=== PATIENT | male | born 1980 | race Caucasian/White ===

== ENCOUNTER 2018-08-15 17:14 | Emergency (ER) | payer SELFPAY ==
[2018-08-15 17:55] VITALS: BP 135/71
[2018-08-15] MEDS ORDERED: Ibuprofen TAB* 400 MG PO ONE (17:58)
[2018-08-15 18:09] LABS: Influenza A Molecular POSITIVE (Negative)
--- NOTE | 2018-08-15 18:54 | UC ---
FLU HPI - HPI Summary HPI Summary: 38-year-old male with a chief complaint of almost a week of upper respiratory tract infection symptoms that he got a lot sicker today. Had a runny nose no sore throat for several days and then today feels like his bodies in a vice. He has fevers today and also. Generalized myalgias. Minimal sore throat is a little bit of a cough but no shortness of breath. Tries [id number] medicines which helped some. - History of Current Complaint Chief Complaint: UCGeneralIllness Stated Complaint: ACHES, AND COUGH Time Seen by Provider: 08/15/18 18:39 Pain Intensity: 8 - Allergy/Home Medications Allergies/Adverse Reactions: Allergies Allergy/AdvReac Type Severity Reaction Status Date / Time No Known Allergies Allergy Verified 08/15/18 17:56 PMH/Surg Hx/FS Hx/Imm Hx Previously Healthy: Yes - Surgical History Surgical History: Yes Surgery Procedure, Year, and Place: back. legs. shoulder - Family History Known Family History: Positive: Non-Contributory - Social History Alcohol Use: None Substance Use Type: None Smoking Status (MU): Heavy Every Day Tobacco Smoker Review of Systems All Other Systems Reviewed And Are Negative: Yes Constitutional: Positive: Fever, Chills Skin: Positive: Negative Eyes: Positive: Negative ENT: Positive: Sore Throat, Nasal Discharge, Sinus Congestion Respiratory: Positive: Cough Cardiovascular: Positive: Negative Gastrointestinal: Positive: Negative Motor: Positive: Negative Neurovascular: Positive: Negative Musculoskeletal: Positive: Myalgia Neurological: Positive: Negative Psychological: Positive: Negative Is Patient Immunocompromised?: No Physical Exam Triage Information Reviewed: Yes Appearance: No Pain Distress, Well-Nourished, Ill-Appearing - MILD Vital Signs: Initial Vital Signs Temp 104 F 08/15/18 17:47 Pulse 108 08/15/18 17:47 Resp 17 08/15/18 17:47 BP 135/71 08/15/18 17:47 Pulse Ox 96 08/15/18 17:47 Vital Signs Reviewed: Yes Eye Exam: Normal Eyes: Positive: Conjunctiva Clear ENT: Positive: Pharyngeal erythema, Nasal congestion, Nasal drainage, TMs normal Neck exam: Normal Neck: Positive: Supple Respiratory: Positive: Lungs clear, Normal breath sounds, No respiratory distress Cardiovascular: Positive: Tachycardia Musculoskeletal Exam: Normal Musculoskeletal: Positive: Strength Intact, ROM Intact Neurological Exam: Normal Neurological: Positive: Alert, Muscle Tone Normal Psychological Exam: Normal Psychological: Positive: Normal Response To Family, Age Appropriate Behavior Skin Exam: Normal Flu Course/Dx - Differential Dx/Diagnosis Provider Diagnosis: Influenza Discharge - Sign-Out/Discharge Documenting (check all that apply): Patient Departure All imaging exams completed and their final reports reviewed: No Studies - Discharge Plan Condition: Stable Disposition: HOME Prescriptions: Oseltamivir CAP* [Tamiflu CAP*] 75 mg PO BID #10 cap Patient Education Materials: Influenza (ED) Forms: *Work Release Referrals: Matthew Peter MD [Primary Care Provider] - Additional Instructions: FOLLOW UP WITH YOUR DOCTOR IF NOT COMPLETELY IMPROVED. GET RECHECKED FOR ANY WORSENING OF YOUR CONDITION OR QUESTIONS OR CONCERNS. - Billing Disposition and Condition Condition: STABLE Disposition: Home
== END 2018-08-15 19:00 | disposition home or self-care (01) ==
LOC: UCEAST 17:14
DX: J11.1 Influenza due to unidentified influenza virus with other respiratory manifestations (principal); F17.290 Nicotine dependence, other tobacco product, uncomplicated
CPT/HCPCS: 99212; A9270-GY; G0463

== ENCOUNTER 2018-08-22 16:25 | Emergency (ER) | payer SELFPAY ==
[2018-08-22 16:55] VITALS: BP 143/93
--- NOTE | 2018-08-22 17:11 | UC ---
Respiratory Complaint HPI - HPI Summary HPI Summary: Patient presents to urgent care reporting he's got some chest congestion cough productive of yellow-green sputum. Patient denies shortness of breath. Patient states he does have wheezing. Patient smokes 2 packs of similar today. Patient was evaluated urgent care last week and diagnosed with influenza. Patient was to on Tamiflu. 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 Patient says he was doing good until yesterday when he started to feel cough and congestion. Patient without any ear pain sinus pain sore throat. Patient has not taken any [id number] medications. Patient medications reviewed this visit. - History of Current Complaint Chief Complaint: UCRespiratory Stated Complaint: CHEST CONGESTION Time Seen by Provider: 08/22/18 16:54 Hx Obtained From: Patient, Medical Records Onset/Duration: Gradual Onset Severity Initially: Mild Severity Currently: None Pain Intensity: 0 Pain Scale Used: 0-10 Numeric Character: Cough: Productive - yellow-green - Allergies/Home Medications Allergies/Adverse Reactions: Allergies Allergy/AdvReac Type Severity Reaction Status Date / Time No Known Allergies Allergy Verified 08/22/18 16:55 Home Medications: Home Medications D-Methorphan/PE/Acetaminophen [Vicks Dayquil Cold & Flu 10-5-325 mg/15Ml] 1 liq PO Q6H 08/22/18 [History Confirmed 08/22/18] PMH/Surg Hx/FS Hx/Imm Hx Previously Healthy: Yes Respiratory History: Pneumonia - Surgical History Surgical History: Yes Surgery Procedure, Year, and Place: back. 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 EOM intact and full ENT: Hearing grossly normal TM x 2 clear, mild bogginess b/l, mmoist, uvula midline, no exudate, no erythema Neck: Positive: Supple Respiratory: Positive: Patient with intermittent coarse cough. Patient with scattered expiratory wheezing. Patient speaking full easy sentences. Cardiovascular: RRR nl s1, s2 no m/r CBT <2 sec abd soft + BS nt/nd no guarding, no distension Musculoskeletal Exam: DODD x 4 without difficulty Strength Intact, ROM Intact Neurological: Positive: Alert, + sensation throughout Psychological: Positive: Normal Response To Family Skin: Positive: no rash, no ecchymosis Triage Information Reviewed: Yes Vital Signs: Initial Vital Signs Temp 98.7 F 08/22/18 16:50 Pulse 108 08/22/18 16:50 Resp 16 08/22/18 16:50 BP 143/93 08/22/18 16:50 Pulse Ox 99 08/22/18 16:50 UC Diagnostic Evaluation - Laboratory O2 Sat by Pulse Oximetry: 99 Respiratory Course/Dx - Course Course Of Treatment: Patient presents with cough productive of yellow-green sputum and has been treated wheezing. Patient states he feels congested in his chest. Patient was treated for flu last week and improved until yesterday. Patient does smoke 2 packs of cigarettes today. Patient refused nebulizer at urgent care. Will be given and antibiotics and albuterol MDI. Discussed with patient secretion precaution. Return precaution. Motrin Tylenol. Humidified air. Patient comfortable in agreement with plan. Pt's BP mildly elevated - recommend f/u with PCP - Differential Dx/Diagnosis Provider Diagnosis: Acute bronchitis Discharge - Sign-Out/Discharge Documenting (check all that apply): Patient Departure All imaging exams completed and their final reports reviewed: No Studies - Discharge Plan Condition: Stable Disposition: HOME Prescriptions: Albuterol HFA INHALER* [Ventolin HFA Inhaler*] 2 puff INH Q4H PRN #1 mdi PRN Reason: wheeze Amoxicillin PO (*) [Amoxicillin 875 MG (*)] 875 mg PO BID #20 tab Patient Education Materials: Acute Bronchitis (ED) Referrals: Matthew Peter MD [Primary Care Provider] - Additional Instructions: - Okay to take over the counter decongestant medications. - These infections are spread by secretions - do not share eating or drinking utensils. Clean items with your secretions - cell phone, computer mouse, TV remote. Once you start to feel better, change your pillowcase and your toothbrush - Take antibiotics as prescribed until gone - work to decrease cigarette smoking - use your inhaler - 2 puffs every 3 hours today and tomorrow, then as needed - humidify the air in the room where you sleep (humidifier, boil water, run a steam shower, put cups of water next to the heat register) - Get plenty of restful sleep - Contact your doctor to schedule a follow-up appointment next week. Contact your doctor or go to the emergency department with questions or concerns - Billing Disposition and Condition Condition: STABLE Disposition: Home
== END 2018-08-22 17:42 | disposition home or self-care (01) ==
LOC: UCEAST 16:25
DX: J20.9 Acute bronchitis, unspecified (principal); F17.200 Nicotine dependence, unspecified, uncomplicated; Z87.01 Personal history of pneumonia (recurrent)
CPT/HCPCS: 99212; G0463